=== PATIENT | female | born 1955 | race Caucasian/White ===

== ENCOUNTER → 2016-05-29 | Outpatient (CLI) | payer BC ==
[~2016-05-29] VITALS: Ht 165.1 cm; Wt 71.2 kg
== END ==
LOC: OPSV 13:52
DX: M81.8 Other osteoporosis without current pathological fracture (principal); Z88.5 Allergy status to narcotic agent
CPT/HCPCS: 96372

== ENCOUNTER → 2020-04-30 | Outpatient (CLI) | payer BC, OTHER ==
[~2020-04-30] MED LIST: BENTYL 20MG TAB20 MG PO; DAILY VALUE1 EACH PO; DULOXETINE HCL60 MG PO; FISH OIL 1,2001 EAC2 PO; IBUPROFEN800 MG PO; KLONOPIN TAB 00.5 MG PO; LIORESAL TAB 1010 MG PO; MAGNESIUM400 M2 PO; MELATONIN5 M2 PO; NORVASC10 MG PO; PRESERVISION A1 EACH PO; PRIMIDONE250 MG PO; PROPRANOLOL HCL10 MG PO; PROTONIX40 MG PO; SEROQUEL25 MG PO; ULTRAM50 MG PO; VITAMIN B COMP1 EAC1 PO; VITAMIN C1000 MG PO; VITAMIN D325 MCG PO; WELLBUTRIN 75 M75 MG PO
== END ==
LOC: KOH-I 09:40
DX: Z87.891 Personal history of nicotine dependence (principal); R91.8 Other nonspecific abnormal finding of lung field
CPT/HCPCS: 71271

== ENCOUNTER → 2020-07-19 | Outpatient (CLI) | payer BC ==
[2020-07-19 18:36] LABS: HEMOGLOBIN 13.9 gm/dl (12.3-15.3); RED BLOOD COUNT 4.03 M/UL (4.00-5.10)
[2020-07-19 18:55] LABS: BUN/CREATININE RATIO 23 (0-10)
== END ==
LOC: LAB 18:00 → RAD 18:00
PROVIDERS: Emergency Medicine
DX: K59.1 Functional diarrhea (principal); K29.00 Acute gastritis without bleeding; R63.4 Abnormal weight loss; K59.04 Chronic idiopathic constipation; E78.2 Mixed hyperlipidemia; I10 Essential (primary) hypertension; Z88.5 Allergy status to narcotic agent
CPT/HCPCS: 36415; 74022; 80053; 83690; 85025

== ENCOUNTER → 2020-07-31 | Day surgery (SDC) | payer BC | END | disposition home or self-care (01) | LOC: OR 07:50 | DX: K29.50 Unspecified chronic gastritis without bleeding (principal); K31.9 Disease of stomach and duodenum, unspecified; K21.00 Gastro-esophageal reflux disease with esophagitis, without bleeding; M35.3 Polymyalgia rheumatica; I10 Essential (primary) hypertension; F32.9 Major depressive disorder, single episode, unspecified; F41.9 Anxiety disorder, unspecified; F17.210 Nicotine dependence, cigarettes, uncomplicated; Z86.010 Personal history of colon polyps; Z88.5 Allergy status to narcotic agent; Z79.1 Long term (current) use of non-steroidal anti-inflammatories (NSAID); Z79.899 Other long term (current) drug therapy | CPT/HCPCS: J2405; J2704; J7040 ==

== ENCOUNTER → 2020-12-06 | Outpatient (CLI) | payer BC | LOC: KOH-I 09:00 | DX: R91.8 Other nonspecific abnormal finding of lung field (principal) | CPT/HCPCS: 71250 ==

== ENCOUNTER → 2021-02-06 | Outpatient (CLI) | payer BC, MEDICARE ==
[~2021-02-06] VITALS: Ht 167.6 cm; Wt 62.6 kg
== END ==
LOC: OPSV 12:44
DX: M81.0 Age-related osteoporosis without current pathological fracture (principal)
CPT/HCPCS: 96365; J3489; J7030

== ENCOUNTER → 2021-06-12 | Outpatient (CLI) | payer BC, OTHER | LOC: KOH-I 06-02 15:00 | DX: R91.8 Other nonspecific abnormal finding of lung field (principal); Z87.891 Personal history of nicotine dependence | CPT/HCPCS: 71250 ==

== ENCOUNTER → 2021-06-24 | Outpatient (CLI) | payer OTHER | LOC: HEART 5 10:11 | DX: R06.02 Shortness of breath (principal); Z87.891 Personal history of nicotine dependence | CPT/HCPCS: 94060; 94729 ==

== ENCOUNTER → 2021-09-11 | Outpatient (CLI) | payer OTHER | LOC: EMI 12:51 | DX: M51.26 Other intervertebral disc displacement, lumbar region (principal); M51.36 Other intervertebral disc degeneration, lumbar region; M51.37 Other intervertebral disc degeneration, lumbosacral region | CPT/HCPCS: 72148 ==

== ENCOUNTER → 2021-11-28 | Outpatient (CLI) | payer OTHER | LOC: KOH-I 12:06 | DX: M25.551 Pain in right hip (principal); M16.11 Unilateral primary osteoarthritis, right hip | CPT/HCPCS: 73502 ==

== ENCOUNTER → 2021-12-09 | Outpatient (CLI) | payer OTHER | LOC: EMI 13:00 | DX: M16.11 Unilateral primary osteoarthritis, right hip (principal) | CPT/HCPCS: 73721 ==